=== PATIENT | male | born 1990 | race Caucasian/White ===

== ENCOUNTER 2016-10-05 09:56 | Emergency (ER) | payer OTHER ==
[2016-10-05] MEDS ORDERED: CYCLOBENZAPRINE 10 MG TAB PO STA (10:35)
[2016-10-05] MEDS ORDERED: HYDROcodone/APAP 5-325MG 1 EACH TAB PO STA (10:35)
--- NOTE | 2016-10-05 10:36 | ED ---
Back Pain HPI - General Chief Complaint: Back Pain/Injury Stated Complaint: back pain Time Seen by Provider: 10/05/16 10:21 Source: patient, RN notes reviewed Mode of arrival: wheelchair Limitations: no limitations - History of Present Illness Initial Comments: 26-year-old male presents emergency Department with chief complaint of pelvic pain. Patient states she was lifting a cement wash been and states that he felt a pull in his back. Patient states he had instant pain. He states it has been very is to his right leg. Patient denies any bowel bladder incontinence or retention. Denies any saddle anesthesias. Patient denies any abdominal pain including nausea vomiting diarrhea constipation. Patient states he injured his back in the past and states that it was never this bad. Patient offers no complaints. - Related Data Previous Rx's Medication Instructions Recorded Cyclobenzaprine [Flexeril] 10 mg PO TID PRN #15 tab 10/05/16 Hydrocodone/Acetaminophen [[place] 1 tab PO Q6HR PRN #20 tab 10/05/16 5-325] Allergies Allergy/AdvReac Type Severity Reaction Status Date / Time No Known Allergies Allergy Verified 10/05/16 10:41 Review of Systems ROS Statement: Those systems with pertinent positive or pertinent negative responses have been documented in the HPI. ROS Other: All systems not noted in ROS Statement are negative. Past Medical History Past Medical History: No Reported History History of Any Multi-Drug Resistant Organisms: None Reported Past Surgical History: No Surgical Hx Reported Past Psychological History: No Psychological Hx Reported Smoking Status: Never smoker Past Alcohol Use History: Occasional Past Drug Use History: None Reported General Exam Limitations: no limitations General appearance: alert, in no apparent distress Respiratory exam: Present: normal lung sounds bilaterally. Absent: respiratory distress, wheezes, rales, rhonchi, stridor Cardiovascular Exam: Present: regular rate, normal rhythm, normal heart sounds. Absent: systolic murmur, diastolic murmur, rubs, gallop, clicks Extremities exam: Present: normal inspection, full ROM, normal capillary refill. Absent: tenderness, pedal edema, joint swelling, calf tenderness Back exam: Present: tenderness, paraspinal tenderness, other (Pain with straight leg raise on the right). Absent: full ROM (Decreased range of motion secondary pain), CVA tenderness (R), CVA tenderness (L), vertebral tenderness Neurological exam: Present: alert, oriented X3, CN II-XII intact Course Vital Signs 10/05/16 10:03 Temperature 97.3 F L Pulse Rate 74 Respiratory 20 Rate Blood Pressure 124/60 O2 Sat by Pulse 98 Oximetry Medical Decision Making - Medical Decision Making 26-year-old male presented for her back pain. Patient is lumbar strain mild lumbar radiculopathy. Patiently discharges time return parameters were discussed patient and no red flag symptoms. Patient started pain medication, muscle relaxers. Disposition Clinical Impression: Strain of lumbar region Disposition: HOME SELF-CARE Condition: Stable Instructions: Acute Low Back Pain (ED) Additional Instructions: Please return to the Emergency Department if symptoms worsen or any other concerns. Prescriptions: Cyclobenzaprine [Flexeril] 10 mg PO TID PRN #15 tab PRN Reason: Muscle Spasm Hydrocodone/Acetaminophen [[place] 5-325] 1 tab PO Q6HR PRN #20 tab PRN Reason: Pain Referrals: Sandra Costello MD [Primary Care Provider] - 1-2 days Time of Disposition: 10:36
[2016-10-05 10:55] VITALS: BP 126/52; PULSE 69; RESP 18; TEMP 97.4
== END 2016-10-05 10:59 | disposition home or self-care (01) ==
LOC: EC 09:56
DX: S39.012A Strain of muscle, fascia and tendon of lower back, initial encounter (principal); X50.0XXA Overexertion from strenuous movement or load, initial encounter
CPT/HCPCS: 99283

== ENCOUNTER → 2020-01-07 | Outpatient (CLI) | payer OTHER | END | disposition home or self-care (01) | LOC: LABWHC1 10:53 | PROVIDERS: ATTEND Nurse Practitioner Family | DX: Z20.828 Contact with and (suspected) exposure to other viral communicable diseases (principal) | CPT/HCPCS: U0003; C9803 ==

== ENCOUNTER → 2024-08-26 | Outpatient (CLI) | payer BC ==
--- NOTE | 2024-08-27 06:15 | MR ---
EXAMINATION TYPE: MR lumbar spine wo con DATE OF EXAM: 08/26/2024 COMPARISON: Lumbar spine x-ray May 18, 2015 HISTORY: low back pain that radiates down right hip, thigh, groin and knee, x4 years but has gotten w orse past 6 months TECHNIQUE: Multiplanar, multisequence imaging of the lumbar spine is performed without IV contrast. FINDINGS: Sagittal images of the lumbar spine show vertebral body heights to appear satisfactory. Sli ght grade 1 retrolisthesis L5 on S1. There is disc desiccation with mild disc space narrowing at the L3-L4 and L5-S1 level. The conus medullaris is normal in position and signal ending inferior L1 leve l. The bone marrow signal intensity is within normal limits. Axial images show the T12-L1 through L2-L3 levels to appear within normal limits. Axial images at L3-L4 level shows mild broad-based disc bulge minimally effacing anterior thecal sac. Axial images at L4-L5 level appear within normal limits. Axial images at L5-S1 levels with broad-based right paracentral disc protrusion. Spinal canal is pres erved and there is increased epidural fat at this level. There is moderate right-sided neural foramin al narrowing on sagittal image 12. Paraspinal muscle bulk is maintained. IMPRESSION: [id number] degenerative changes at L3-L4 and L5-S1 level as detailed above. [facility], , 08/27/2024 6:13 AM
== END | disposition home or self-care (01) ==
LOC: RADMRIMAIN 21:45
PROVIDERS: ATTEND Internal Medicine
DX: M51.17 Intervertebral disc disorders with radiculopathy, lumbosacral region (principal); M47.27 Other spondylosis with radiculopathy, lumbosacral region
CPT/HCPCS: 72148

== ENCOUNTER → 2024-09-03 | Outpatient (CLI) | payer BC, OTHER ==
[2024-09-03 13:55] VITALS: BP 132/82; PULSE 87; RESP 20; TEMP 97.6
--- NOTE | 2024-09-03 15:03 | P.PAINCN ---
History of Present Illness - History of Present Illness This is a 34-year-old pleasant gentleman who has been having low back pain for many years. Pain has been getting worse for the last few years. No history of trauma or accident. Low back pain is aching in character right lower extremity pain and spasm in character. In right lower extremity pain is located in the groin and thigh area up to his knees. Intensity of pain goes up to 9/10. Activity especially walking bending increases the pain. Stretching and medication decreases the pain to some extent. Few times in the past patient felt weakness in the right knee most likely secondary to pain. Denies giving out knees. Denies any motor weakness. Denies any sensory loss. Denies any bowel bladder dysfunction. Patient tried TENS unit in the past with some help hot and cold, Biofreeze, medication Motrin naproxen Tylenol and Flexeril. Past Medical History Past Medical History: No Reported History History of Any Multi-Drug Resistant Organisms: None Reported Past Surgical History: No Surgical Hx Reported Past Psychological History: No Psychological Hx Reported Smoking Status: Current some day smoker, Unknown if ever smoked Past Alcohol Use History: Occasional Past Drug Use History: None Reported Medications and Allergies Home Medications Medication Instructions Recorded Confirmed Type Cyclobenzaprine [Flexeril] 10 mg PO TID PRN #15 tab 10/05/16 Rx Hydrocodone/Acetaminophen [[place] 1 tab PO Q6HR PRN #20 tab 10/05/16 Rx 5-325] Allergies Allergy/AdvReac Type Severity Reaction Status Date / Time No Known Allergies Allergy Verified 10/05/16 10:41 Physical Exam Vitals: Vital Signs Temp Pulse Resp BP Pulse Ox 09/03/24 13:51 97.6 F 87 20 132/82 96 Intake and Output 09/02/24 09/03/24 09/03/24 22:59 06:59 14:59 Other: Weight 114.759 kg Physical Examinations : -Constitutiona : Cooperative , not in acute distress . -HEENT : nech : supple , no Lymphadenopathy , normal thyroid size . : eyes : no ptosis , no icterus, no photophobia . - neurologic : Cranial nerve II to XII intact , no focal neurological deffecit . -psychatric : alert , oriented X 3 , appropriate affect , intact judgment and insight . -Lymphatic : no Lymphadenopathy . - musculoskeltal : Lumbar spine. Flexion hyperextension rotation are slightly limited and painful. Physical exam tenderness in the midline and paraspinal areas. Mild paraspinal muscle spasm. Motor strength of toes flexion extension knees flexion extension hip flexion extension 5/5 bilaterally. Deep tendon reflexes of knees and ankles 1+ bilaterally. Sensation to touch is grossly intact bilaterally. Straight leg raising test questionably positive in the right side. Negative left side. Gaenslen's test Faisal's test negative bilaterally. Assessment and Plan Assessment: Lumbar disc herniation. Lumbar radiculopathy. Foraminal stenosis. Lumbar spine spondylosis. Plan: Scheduled for lumbar epidural steroid injection L4-5 levels. Discussed the procedure, alternatives, complications which includes infection bleeding nerve damage paralysis aggravation of pain all of which could be permanent. Patient understands and all questions were answered. PQRS Measure Charge Sheet Mode of Arrival: Ambulatory - Pain Location Lower Back Non-Pharmacological Interventions: Stretching PQRS Narrative: Smoking Status Never smoker Blood Pressure 132/82 Pain Intensity [Lower Back] 9 Scale Used Numeric (1 - 10) Hx Alcohol Use (MH) No Home Medications: Ambulatory Orders Cyclobenzaprine [Flexeril] 10 mg PO TID PRN #15 tab 10/05/16 Hydrocodone/Acetaminophen [[place] 5-325] 1 tab PO Q6HR PRN #20 tab 10/05/16
== END ==
LOC: PNWHC3 12:56
PROVIDERS: ATTEND Anesthesiology
DX: M47.26 Other spondylosis with radiculopathy, lumbar region (principal); M48.061 Spinal stenosis, lumbar region without neurogenic claudication
CPT/HCPCS: 99211

== ENCOUNTER 2024-09-15 06:19 | Day surgery (SDC) | payer BC ==
[2024-09-11 10:28] VITALS: BMI 34.5
[2024-09-15] MEDS ORDERED: LACTATED RINGERS 1,000 ML IV SCH (06:20)
[2024-09-15 06:35] VITALS: TEMP 96.9
[2024-09-15] MEDS ORDERED: IOPAMIDOL M200 10 ML VIAL ONE (07:03)
[2024-09-15] MEDS ORDERED: methylPREDNISolone ACETATE 80 MG/ML 1 ML VIAL ONE (07:03)
--- NOTE | 2024-09-15 07:20 | P.PCN ---
Description of Procedure: PREOPERATIVE DIAGNOSIS: 1- Lumbar Degenerative Disc Diseases 2-Lumbar spondylosis with Facet arthropathy without myelopathy. 3-lumbar spinal stenosis POSTOPERATIVE DIAGNOSIS: 1-lumbar degenerative disc disease. 2-lumbar spondylosis with facet arthropathy without myelopathy. 3-lumbar spinal stenosis. PROCEDURE Injection of radio contrast material into L4-5 interspace, interpretation of epidurogram, injection of steroid at L4- 5 epidural space under fluoroscopic guidance. ANESTHESIA: Lidocaine 1% subcutaneously. In OR continuous pulse ox, EKG, blood pressure and verbal communication was maintained with the patient. EBL: Minimal PROCEDURE INDICATION: Before the procedure were discussed with the patient detailed procedure, alternatives, complications including infection, bleeding, nerve damage, paralysis all of which could be permanent. Patient understands and all questions were answered. PROCEDURE DESCRIPTION : After getting consent, patient in OR in prone position. Back was prepped with chlorhexidine and draped in sterile fashion. After injecting 10 mL of 1% lidocaine subcutaneously, a 20-gauge Tuohy needle was introduced at L4 5 interspace with loss of resistance technique using a syringe filled with air. Negative CSF, negative blood, negative paresthesia. Needle position was confirmed with AP and lateral view of the fluoroscope. After repeat negative aspiration 2 mL of Omnipaque 200 water soluble contrast was injected. Contrast was noted in the epidural space. No contrast was noted into intrathecal or intravascular space. After repeat negative aspiration 6 mL solution was injected intermittently which consists of 5 mL of preservative-free normal saline mixed with 1 mL of 80 mg Depo-Medrol. Needle was withdrawn intact. Skin was cleansed and Band-Aids was applied. DISPOSITION / PLANS: The patient tolerated the procedure well. No complication. The patient was placed in a supine position and transferred to the recovery area in a stable condition for observation. There was no evidence of lower extremity motor or sensory deficit after the procedure. Patient was discharged from the recovery room after meeting discharge criteria. Home discharge instructions were given to the patient by the staff. The patient was reexamined prior to discharge. The patient will schedule a follow up in the clinic in 2-4 weeks.
--- NOTE | 2024-09-15 07:31 | FL ---
EXAMINATION TYPE: FL guided pain mgmt statistic DATE OF EXAM: 09/15/2024 COMPARISON: NONE HISTORY: Lumber Epid Inj TECHNIQUE: Fluoroscopy. FINDINGS: lesi in pain services. pt with low back pain. fl time 10.1 secs dap [id number] IMPRESSION: As Above. [facility], , 09/15/2024 7:28 AM
[2024-09-15 07:36] VITALS: BP 113/70; PULSE 89; RESP 18
== END 2024-09-15 08:07 | disposition home or self-care (01) ==
LOC: ORPAIN 06:19
PROVIDERS: ATTEND Pain Medicine Interventional Pain Medicine
DX: M48.061 Spinal stenosis, lumbar region without neurogenic claudication (principal); M47.816 Spondylosis without myelopathy or radiculopathy, lumbar region; M51.369 Other intervertebral disc degeneration, lumbar region without mention of lumbar back pain or lower extremity pain
CPT/HCPCS: 62323; Q9966; J1010

== ENCOUNTER → 2024-10-01 | Outpatient (CLI) | payer BC ==
[2024-10-01 13:14] VITALS: BP 135/82; PULSE 98; RESP 20; TEMP 98.9
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
== END ==
LOC: PNWHC3 12:57
PROVIDERS: ATTEND Specialist
DX: M47.26 Other spondylosis with radiculopathy, lumbar region (principal); M43.17 Spondylolisthesis, lumbosacral region
CPT/HCPCS: 99211

== ENCOUNTER 2024-11-17 06:50 | Day surgery (SDC) | payer BC ==
[~2024-11-17 06:50] MED LIST: LACTATED RINGERS 1,000 ML IV SCH
[2024-11-17 07:20] VITALS: TEMP 98.8
[2024-11-17] MEDS ORDERED: DEXAMETHASONE SOD PHOSPHATE 10 MG/ML 1 ML VIAL ONE (08:40)
[2024-11-17] MEDS ORDERED: IOPAMIDOL M300 15ML VIAL ONE (08:40)
--- NOTE | 2024-11-17 09:07 | P.PCN ---
Description of Procedure: PREOPERATIVE DIAGNOSIS: 1-Lumbar radiculopathy . 2-lumbar degenerative disc disease. 3-lumbar spondylosis with lumbar facet arthropathy without myelopathy POSTOPERATIVE DIAGNOSIS: 1-lumbar radiculopathy. 2-lumbar degenerative disc disease. 3-lumbar spondylosis with facet arthropathy without myelopathy PROCEDURE 1. Transforaminal epidural steroid injection under fluoroscopic guidance at RIGHT L5-S1 level. (Fluoroscopy images stored on file in the radiology Department ) 2. Lumbar epidurogram . ANESTHESIA: Local with 1% lidocaine 5 ml. subcutaneously. Continuous pulse ox, EKG, blood pressure and verbal communication was maintained with the patient. EBL: Minimal PROCEDURE INDICATION: The patient with low back pain and radiculopathy symptoms unresponsive to conservative treatment. The patient was seen and identified in the preoperative area. Risks, benefits, complications, and alternatives were discussed with the patient. The patient agreed to proceed with the procedure and signed the consent. IV was started, and vital signs were stable. PROCEDURE DESCRIPTION / TECHNIQUE: After getting consent, patient was taken to the OR and time out was completed. The patient was placed in the prone position on procedure table and a pillow was placed under the abdomen to reduce lumbar lordosis. The lumbosacral area was prepped and draped in the usual sterile fashion. Critical pause was taken. After injecting 5 mL of plain 1% lidocaine subcutaneously, under oblique view of the fluoroscope, a 22-gauge spinal needle was introduced under the tunnel view of the fluoroscope on the RIGHT side and the needle was advanced so that the tip of the needle was at the posterior inferior quadrant of the intervertebral foramen at the lateral view of the fluoroscope and in the lateral third of the facet column in the AP view of the fluoroscope. Negative CSF, negative blood, negative paresthesia. After needle position confirmation by AP and cross table lateral view, 3 mL of Isovue-M 200 contrast was injected under continuous fluoroscope. No contrast was noted in the intrathecal or intravascular space. The epidurogram was noted. Again after repeated negative aspiration 2.5 mL solution was injected which consists 0.5 mL of normal saline mixed with 2 mL of 20 mg dexamethasone. Needle was removed . At the end of the procedure, skin was cleansed, and bandages were applied. DISPOSITION / PLANS: No complication. The patient tolerated the procedure well. The patient was placed in a supine position and transferred to the recovery area in a stable condition for observation. There was no evidence of lower extremity motor or sensory deficit after the procedure. Patient was discharged from the recovery room after meeting discharge criteria. Home discharge instructions were given to the patient by the staff. The patient was reexamined prior to discharge.
[2024-11-17 09:16] VITALS: BP 119/70; PULSE 76; RESP 17
--- NOTE | 2024-11-17 11:28 | FL ---
EXAMINATION TYPE: FL guided pain mgmt statistic Intraoperative/procedural fluoroscopic services were provided. CLINICAL INDICATION:Male, 34 years old with history of TRANSFORAMINAL; , [facility] FINDINGS: Fluoroscopic images for lumbar transforaminal injection. No radiographic evidence for complication. Total fluoroscopy time is 77.8 seconds. DAP: [id number] [id number] Please see the operative/procedural note for further details. [facility], , 11/17/2024 11:26 AM
== END 2024-11-17 09:21 | disposition home or self-care (01) ==
LOC: ORPAIN 06:50
PROVIDERS: ATTEND Pain Medicine Interventional Pain Medicine
DX: M47.26 Other spondylosis with radiculopathy, lumbar region (principal); M51.16 Intervertebral disc disorders with radiculopathy, lumbar region; I10 Essential (primary) hypertension; Z79.1 Long term (current) use of non-steroidal anti-inflammatories (NSAID)
CPT/HCPCS: 64483; J1100; Q9967